=== PATIENT | female | born 1970 | race Caucasian/White ===

== ENCOUNTER → 2021-06-13 | Outpatient (CLI) | payer OTHER ==
[~2021-06-13] MED LIST: ALEVE220 M1; MOBIC15 MG PO; NOHOMEMEDICATIONS; NORCO 5-325 TA1 EACH PO; PREDNISONE 20 M20 M1 PO
== END ==
LOC: M.ULTRA 09:58
PROVIDERS: ATTEND Family Medicine
DX: Z12.31 Encounter for screening mammogram for malignant neoplasm of breast (principal); D25.9 Leiomyoma of uterus, unspecified; N83.292 Other ovarian cyst, left side

== ENCOUNTER 2021-06-27 14:54 | Emergency (ER) | payer OTHER ==
[~2021-06-27] VITALS: Ht 162.6 cm; Wt 68.0 kg
[2021-06-27 16:01] LABS: URINE BILIRUBIN NEGATIVE (Negative); URINE BLOOD NEGATIVE (Negative); URINE CLARITY CLEAR; URINE COLOR YELLOW; URINE GLUCOSE-RANDOM NEGATIVE (Negative); URINE KETONES NEGATIVE (Negative); URINE LEUKOCYTES-REFLEX NEGATIVE (Negative); URINE NITRITE-REFLEX NEGATIVE (Negative); URINE PROTEIN NEGATIVE (Negative); URINE UROBILINOGEN 0.2 E.U./dl (0.2-1.0)
[2021-06-27 16:27] LABS: ABSOLUTE EOSINOPHILS 0.2 thou/uL (0.0-0.7); ABSOLUTE LYMPHOCYTES 2.3 thou/uL (0.8-5.3); ABSOLUTE MONOCYTES 0.5 thou/uL (0.0-1.2); ABSOLUTE NEUTROPHILS 4.7 thou/uL (1.6-8.1); BASOPHILS 0.4 %; EOSINOPHILS 2.4 %; HEMATOCRIT 39.4 % (37.0-47.0); HEMOGLOBIN 13.4 gm/dL (12.0-15.0); LYMPHOCYTES 29.5 %; MCH 30.5 pg (26.0-34.0); MCV 89.7 fL (80.0-100.0); MONOCYTES 6.8 %; MPV 8.4 fl. (7.2-11.1); NUCLEATED RBCS 0 /100WBC; PLATELET COUNT* 242 thou/uL (150-400); POLYS 60.9 %; RDW-CV 13.3 % (10.5-14.5); WBC 7.8 thou/uL (4.0-11.0)
[2021-06-27 17:00] LABS: CALCIUM 8.7 mg/dL (8.5-10.1); CREATININE 0.7 mg/dL (0.6-1.3)
[2021-06-27 17:04] LABS: TOTAL BILIRUBIN 0.4 mg/dL (<0.1-1.0); TOTAL PROTEIN 7.1 g/dL (6.4-8.2)
[2021-06-27] MEDS ORDERED: APAP W/CODEINE1 TA2 PO (18:21)
[2021-06-27 18:35] VITALS: BP 115/66
--- NOTE | 2021-06-28 11:25 | EKG ---
[place] [address] ELECTROCARDIOGRAM REPORT Name: SARAH VILLALPANDO Room: [facility]#: [id number] Admission: 06/27/21 Attend Phys: Discharge: 06/27/21 Date of : 70 Date of Service: 06/27/21 1620 Report #: [id number] THIS REPORT FOR: //name// [facility] ED Test Date: 2021-06-27 Test Time: 16:20:27 Pat Name: SARAH VILLALPANDO Department: Room: Gender: F Hi [employer] Driver: : 1970 Requested By: Rafy Berkowitz Order Number: [id number] MD: Simth Reddy Measurements Intervals [place] Rate: 57 P: 49 VT: 111 QRS: 50 QRSD: 93 T: 41 QT: 407 QTc: 397 Interpretive Statements Sinus rhythm Borderline short VT interval Minor IVCD of the right type Borderline low voltage, extremity leads Compared to ECG 11/26/2014 03:18:20 No significant changes Electronically Signed On 06-28-2021 11:24:52 [employer] WORK[employer] by Smith Reddy [email or web address] <ELECTRONICALLY SIGNED> By: Smith Reddy MD, [facility] 06/28/21 1124 1620 1620 Smith Reddy MD, [facility] /EPI
== END 2021-06-27 18:35 | disposition home or self-care (01) ==
LOC: M.ERS 14:54
PROVIDERS: Physician Assistant
DX: R10.32 Left lower quadrant pain (principal); R10.12 Left upper quadrant pain; F17.210 Nicotine dependence, cigarettes, uncomplicated; Z98.890 Other specified postprocedural states

== ENCOUNTER → 2021-07-15 | Outpatient (CLI) | payer OTHER ==
[~2021-07-15] MED LIST changes: +APAP W/CODEINE1 TA2 PO
--- NOTE | 2021-07-15 10:49 | 2DMMODE ---
[place] [address] 2 D/M-MODE ECHOCARDIOGRAM Name: SARAH VILLALPANDO Room: [facility]#: [id number] Admission: 07/15/21 Attend Phys: Belkys Joe RN Discharge: Date of : 70 Date of Service: 07/15/21 1049 Report #: [id number] THIS REPORT FOR: cc: Jessica Ross,Jessica Patterson,Amador Portillo MD [facility] ~ APPROVED REPORT Study performed: 07/15/2021 10:45:02 EXAM: Comprehensive 2D, Doppler, and color-flow Echocardiogram Patient Location: Out-Patient BSA: 1.70 HR: 66 bpm BP: 120/70 mmHg Other Information Study Quality: Good Indications Dyspnea 2D Dimensions IVSd: 8.61 (7-11mm) LVOT Diam: 18.75 (18-24mm) LVDd: 40.37 mm PWd: 9.64 (7-11mm) Ascending Ao: 28.49 (22-36mm) LVDs: 24.10 (25-40mm) Aortic Root: 23.95 mm Volumes Left Atrial Volume (Systole) LA ESV Index: 13.80 mL/m2 Aortic Valve AoV Peak Ricardo.: 1.28 m/s AO Peak Gr.: 6.59 mmHg LVOT Max P.43 mmHg AO Mean Gr.: 2.97 mmHg LVOT Mean P.81 mmHg LVOT Max V: 1.05 m/s AO V2 VTI: 20.91 cm LVOT Mean V: 0.61 m/s DAVID (VTI): 2.85 cm2 LVOT V1 VTI: 21.58 cm Mitral Valve E/A Ratio: 0.85 [place] [address] 2 D/M-MODE ECHOCARDIOGRAM Name: SARAH VILLALPANDO Room: [facility]#: [id number] Admission: 07/15/21 Attend Phys: Belkys Joe RN Discharge: Date of : 70 Date of Service: 07/15/21 1049 Report #: [id number] MV Decel. Time: 157.47 ms MV E Max Ricardo.: 0.64 m/s MV PHT: 45.67 ms MVA (PHT): 4.82 cm2 TDI E/Lateral E': 5.82 E/Medial E': 5.82 Medial E' Ricardo.: 0.11 m/s Lateral E' Ricardo.: 0.11 m/s Pulmonary Valve PV Peak Ricardo.: 0.83 m/s PV Peak Gr.: 2.76 mmHg Tricuspid Valve RAP Estimate: 5.00 mmHg TR Peak Gr.: 21.12 mmHg RVSP: 26.12 mmHg PA Pressure: 26.12 mmHg Left Ventricle The left ventricle is normal size. There is normal LV segmental wall motion. There is normal left ventricular wall thickness. Left ventricular systolic function is normal. The left ventricular ejection fraction is within the normal range. LVEF is 55-60%. Grade I - abnormal relaxation pattern. Right Ventricle The right ventricle is normal size. The right ventricular systolic function is normal. Atria The left atrium size is normal. The atrial septum is aneurysmal. There is no Doppler evidence for an atrial septal defect. The right atrium size is normal. Aortic Valve The aortic valve is normal in structure. Trace aortic regurgitation. Trace aortic regurgitation. There is no aortic valvular stenosis. Mitral Valve The mitral valve is normal in structure. There is trace mitral valve regurgitation noted. No evidence of mitral valve stenosis. Tricuspid Valve The tricuspid valve is normal in structure. [place] [address] 2 D/M-MODE ECHOCARDIOGRAM Name: SARAH VILLALPANDO Room: [facility]#: [id number] Admission: 07/15/21 Attend Phys: Belkys Joe RN Discharge: Date of : 70 Date of Service: 07/15/21 1049 Report #: [id number] Pulmonic Valve The pulmonary valve is normal in structure. There is no pulmonic valvular regurgitation. Great Vessels The aortic root is normal in size. IVC is normal in size and collapses >50% with inspiration. Pericardium There is no pericardial effusion. <Conclusion> Left ventricular systolic function is normal. The left ventricular ejection fraction is within the normal range. <ELECTRONICALLY SIGNED> By: Amador Ibarra MD, FACC 07/15/21 1049 1049 1049 Amador Ibarra MD, FACC /INF
== END ==
LOC: M.CRD 09:21
PROVIDERS: ATTEND Registered Nurse
DX: I07.1 Rheumatic tricuspid insufficiency (principal)